=== PATIENT | male | born 1960 | race American Indian/Alaskan Native ===

== ENCOUNTER 2019-03-22 09:13 | Outpatient (CLI) | payer MEDICARE ==
[2019-03-22 10:18] LABS: Blood Urea Nitrogen 8 mg/dL (9-20)
--- NOTE | 2019-03-22 12:14 | Cat Scan Report ---
PROCEDURE: CT LUMBAR SPINE WO CON TECHNIQUE: Computerized axial tomography of the lumbar spine was performed from T12 to the sacrum wi thout contrast material. Coronal and sagittal reconstructed imaging provided. This study is performed without intravenous contrast and the sensitivity for pathology, including neoplasms, adenopathy, abs cess, inflammation and infection is reduced. CT DOSE LENGTH PRODUCT: 638.5 mGy-cm. HISTORY: PAIN COMPARISONS: None currently available. FINDINGS: Posterior fusion hardware with ankylosis at L4-S1 causes streak artifact limiting evaluation. Straigh tening of the normal lordotic alignment. Hardware is grossly intact based on getter operator film. Inferior endplate intravertebral disc herniation and degenerative changes appear chronic at L2. There is no fracture. T11-T12: Symmetrical bulge. Left facet arthropathy. No significant canal narrowing. Moderate to sever e left foraminal narrowing. Right foramen is intact. T12-L1: Symmetrical disc osteophyte complex. Mild spinal canal and bilateral foraminal narrowing. L1-L2: Minimal posterior subluxation. Symmetrical disc osteophyte complex. Bilateral facet arthropath y. No significant canal or foraminal narrowing. L2-L3: Left asymmetrical disc osteophyte complex. Suspect superimposed left foraminal protrusion aniceto uring approximately 3.3 mm Bilateral facet arthropathy and ligamentum flavum hypertrophy. Moderate sp inal canal narrowing. Moderate to severe left foraminal narrowing. Mild to moderate right foraminal n arrowing. L3-L4: Streak artifact limits evaluation. L4-L5: Streak artifact limits evaluation. No obvious canal narrowing. L5-S1: Streak artifact limits evaluation. No obvious canal narrowing. Prevertebral soft tissue structures are unremarkable. There is no abdominal aortic aneurysm. Left sacroiliitis with ankylosis noted. Mild right sacroiliitis with ankylosis. Sclerotic well-defined lesion in the posterior right iliac bone measures 1.9 x 0.9 cm. Bone graft donor site in the posterior right iliac bone. Sacrum appears relatively intact. IMPRESSION: * Postsurgical changes may be causing straightening of the normal lordotic alignment. Hardware is gr ossly intact based on the getter operator film. * Chronic endplate degenerative changes and intervertebral disc herniations * Streak artifact at L3-S1 limits evaluation. * Degenerative discs with the most notable levels at L2-L3. * Bilateral sacroiliitis. Left ankylosis. This document is electronically signed by Jon Luque MD., March 22 2019 12:12:29 PM ET
--- NOTE | 2019-03-22 12:24 | Cat Scan Report ---
PROCEDURE: CT THORACIC SPINE WO CON TECHNIQUE: CT of the thoracic spine was performed from C7 - L1 without IV contrast. Coronal and sagi ttal reconstructed imaging provided. This study is performed without intravenous contrast and the sen sitivity for pathology, including neoplasms, adenopathy, abscess, inflammation and infection is reduc ed. CT DOSE LENGTH PRODUCT: 717.62 mGy-cm. HISTORY: PAIN COMPARISONS: None currently available. FINDINGS: There is no fracture. There is no subluxation. Thoracic levels do not demonstrate significant canal or foraminal narrowing. Bridging osseous structures. Prevertebral soft tissue structures are unremarkable. IMPRESSION: * No acute fracture. * Bruising osseous structures may be related to ankylosing spondylitis. This document is electronically signed by Jon Luque MD., March 22 2019 12:22:09 PM ET
== END 2019-03-22 09:14 | disposition home or self-care (01) ==
LOC: CT 09:13
PROVIDERS: ATTEND Internal Medicine
DX: M51.26 Other intervertebral disc displacement, lumbar region (principal); M48.061 Spinal stenosis, lumbar region without neurogenic claudication; M46.1 Sacroiliitis, not elsewhere classified; M43.26 Fusion of spine, lumbar region
CPT/HCPCS: 36415; 72128; 72131; 82565; 84520